=== PATIENT | female | born 1965 | race Caucasian/White ===

== ENCOUNTER 2019-02-20 08:11 | Day surgery (SDC) | payer OTHER ==
[2019-02-20] MEDS ORDERED: Ringers Lactate 1,000 ML IV ONE ×3 (08:17→08:25)
[2019-02-20] MEDS ORDERED: CEFAZOLIN/SWI 1gm 1 GM/10 ML SYR ONE (08:17)
[2019-02-20] MEDS ORDERED: dexAMETHasone 10 MG/ML VIAL ONE (08:19)
[2019-02-20] MEDS ORDERED: LIDOCAINE 1% MPF 5 ML VIAL ONE (08:19)
[2019-02-20] MEDS ORDERED: propofoL 200 MG/20 ML VIAL IV ONE (08:19)
[2019-02-20] MEDS ORDERED: FENTANYL CITR 250 MCG/5 ML ONE (08:19)
[2019-02-20] MEDS ORDERED: NS 0.9% VIAL 10 ML ONE (08:19)
[2019-02-20] MEDS ORDERED: MIDAZOLAM HCL 2 MG/2 ML INJ ONE (08:19)
[2019-02-20] MEDS ORDERED: VECURONIUM 10 MG/VIAL IV ONE (08:20)
[2019-02-20] MEDS ORDERED: ONDANSETRON 4 MG/2 ML VIAL ONE ×2 (08:20→13:40)
[2019-02-20] MEDS ORDERED: Mastisol Adhesive Liq ONE ×2 (08:24→15:07)
[2019-02-20] MEDS ORDERED: BACITRACIN 50000 UNIT VIAL ONE (08:24)
[2019-02-20] MEDS ORDERED: CEFAZOLIN SODIUM 1 GM/VIAL ONE (08:24)
[2019-02-20] MEDS ORDERED: NS 0.9% VIAL 20 ML ONE (08:24)
[2019-02-20] MEDS ORDERED: GENTAMICIN SULF 80 MG/2ML INJ ONE (08:24)
[2019-02-20 08:38] LABS: Absolute Lymphocytes (CBC) 2.5 K/uL (0.7-4.9); Basophils % 0.7 % (0-1.3); Hematocrit 42.8 % (36.0-45.0); Lymphocytes % 35.1 % (15.3-44.8); MPV 7.8 fL (7.6-11.3)
[2019-02-20 08:39] LABS: Urine Appearance CLOUDY; Urine Blood NEGATIVE (NEG); Urine Color DK YELLOW; Urine Glucose NEGATIVE (NEG); Urine Protein NEGATIVE (NEG); Urine Specific Gravity >=1.030 (1.005-1.030); Urine Urobilinogen 0.2 mg/dL (0.2-1.0)
[2019-02-20 08:46] LABS: Urine Bilirubin 1+ (NEG); Urine Microscopic Reflex NO UMIC
[2019-02-20] MEDS ORDERED: SCOPOLAMINE HYDROBROMIDE PATCH TD ONE ×2 (08:50)
[2019-02-20] MEDS ORDERED: EPHEDRINE SULF 50 MG/ML VIAL ONE (10:06)
[2019-02-20] MEDS ORDERED: FENTANYL CITR 100 MCG/2 ML ONE (12:30)
[2019-02-20] MEDS ORDERED: ROCURONIUM 50 MG/5 ML VIAL IV ONE (12:31)
[2019-02-20] MEDS ORDERED: GLYCOPYRROLATE 0.2 MG/ML SYR ONE (13:40)
[2019-02-20] MEDS ORDERED: KETOROLAC 30 MG/ML INJ ONE (13:40)
[2019-02-20] MEDS ORDERED: MEPERIDINE HCL 25 MG/0.5 ML ONE (13:57)
[2019-02-20] MEDS: HYDROMORPHONE HCL 1 MG/ML INJ ONE ×2 (15:37→15:49)
[2019-02-20] MEDS ORDERED: PROMETHAZINE INJ 25 MG/ML AMP ONE (15:39)
[2019-02-20 17:34] VITALS: BP 116/62; TEMP 98.3; O2SAT 100
--- NOTE | 2019-02-21 02:38 | OP ---
Surgeon: Dimas Sin MD Assisted Living Assistant: Dionte. Preoperative Diagnosis: Breast asymmetry, enlargement and descent. Postoperative Diagnosis: Breast asymmetry, enlargement and descent. Procedure Performed: Breast lift with minimal reduction. Anesthesia: General. Procedure In Detail: After satisfactory induction of general anesthesia, the chest was prepped with DuraPrep and dry sterile drapes applied in the usual manner. Both breasts were approached simultaneo usly. Approximately 5 cm template was used to outline both right and left areolas. Then, a transvers e curvilinear incision was made. The intervening skin was de-epithelialized with a dermabrader or Ep iCut. Then, a transverse incision was made with electrocautery. The flap was elevated to 1.6 cm thi ckness, elevated towards the sternum, clavicle, anterior axillary line. This was done in both sides subcutaneously. Then, the inferior incision was made. De-epithelialized tissue was made into cone. This was after the lateral tissue was excised using scalpel and electrocautery. Then the cone was f ormed with 2-0 PDS sutures and then at the base of the cone, straps were elevated at 12 o'clock, 1:30 and 3 o'clock position on the right breast. The straps were woven in and out of the pectoralis carmen r muscle, back to the base of the cone, back to the pectoral muscle, and back to the base of the cone , tied themselves with 2-0 PDS. This was done for the 12 o'clock and 1:30 straps. The 3 o'clock str ap was sewn over the sternum at 3 o'clock position with 2-0 Mersilene. Left side was done in mirror- image manner. Patient was sat up. Asymmetry was noted. Dog ears were marked and the dog ears were resected after placing the patient supine and electrocautery was used for hemostasis. Wounds were ir rigated with antibiotic solution and the 10 AL was brought out the axilla and sewn in place with 2-0 silk, and wounds were closed in layers 3-0 Vicryl subcu, 3-0 PDS running subcuticular tied in the yoel tical meridian of the breast. Left side was done after the right side was done. Patient was sat up. Site for new nipple-areolar complex was marked out. Approximately 5 cm template used to outline th e tissue for excision. It was excised, nipples delivered, sewn with interrupted 4-0 PDS, followed by 4-0 PDS running subcuticular. Dressings consisted of tincture of benzoin, Steri-Strips, 5 x 5's, fl uffs, and Marquis wrap. The patient tolerated the procedure well. The amount removed from the right master ast was 388 g. The amount removed from the left breast was 280 g. LUCIANO/VICENTE Voice ID: [id number] Report ID: [id number]
== END 2019-02-20 18:15 | disposition home or self-care (01) ==
LOC: OR 08:11
PROVIDERS: ATTEND Specialist
PROC: 0H0V0ZZ Alteration of Bilateral Breast, Open Approach (ICD-10-PCS; principal; 2019-02-20 09:00)
DX: N62 Hypertrophy of breast (principal); N64.89 Other specified disorders of breast
CPT/HCPCS: 85025; 36415; 88305; 81003; 19316; J2704; J2550; J1580; J2250; J3010 ×2; J1100; J2175; J1170; J0690 ×2; J7120 ×3; J2405 ×2

== ENCOUNTER 2020-03-19 07:51 | Day surgery (SDC) | payer OTHER ==
[2020-03-19] MEDS ORDERED: ACETAMINOPHEN 325 MG TABLET ONE (08:28)
[2020-03-19] MEDS ORDERED: CEFAZOLIN SODIUM 1 GM/VIAL ONE (08:30)
[2020-03-19] MEDS ORDERED: EPINEPHRINE/PF 1 MG/ML AMP ONE (08:30)
[2020-03-19] MEDS ORDERED: GENTAMICIN SULF 80 MG/2ML INJ ONE (08:30)
[2020-03-19] MEDS ORDERED: BACITRACIN 50000 UNIT VIAL ONE (08:31)
[2020-03-19] MEDS ORDERED: NA CHLORIDE 0.9% 1,000 ML ONE (08:31)
[2020-03-19] MEDS ORDERED: Ringers Lactate 1,000 ML IV ONE ×2 (08:31→08:35)
[2020-03-19] MEDS ORDERED: Mastisol Adhesive Liq ONE (08:31)
[2020-03-19] MEDS ORDERED: NS 0.9% VIAL 0 ML ONE (08:32)
[2020-03-19] MEDS ORDERED: CEFAZOLIN/SWI 1gm 1 GM/10 ML SYR ONE (08:35)
[2020-03-19] MEDS ORDERED: SCOPOLAMINE HYDROBROMIDE PATCH TD ONE ×2 (08:40→08:57)
[2020-03-19] MEDS ORDERED: MIDAZOLAM HCL 2 MG/2 ML INJ ONE (08:41)
[2020-03-19] MEDS ORDERED: dexAMETHasone 10 MG/ML VIAL ONE (08:41)
[2020-03-19] MEDS ORDERED: propofoL 200 MG/20 ML VIAL IV ONE (08:41)
[2020-03-19] MEDS ORDERED: FENTANYL CITR 250 MCG/5 ML ONE (08:42)
[2020-03-19] MEDS ORDERED: LIDOCAINE 2% MPF 5 ML VIAL ONE (08:42)
[2020-03-19] MEDS ORDERED: ONDANSETRON 4 MG/2 ML VIAL ONE ×2 (08:42→11:14)
[2020-03-19] MEDS ORDERED: KETOROLAC 30 MG/ML INJ ONE (08:42)
[2020-03-19] MEDS ORDERED: ROCURONIUM 50 MG/5 ML VIAL IV ONE (08:42)
[2020-03-19] MEDS ORDERED: GLYCOPYRROLATE 0.2 MG/ML SYR ONE (10:39)
[2020-03-19] MEDS ORDERED: NEOSTIGMINE 1 MG/ML -5 ML ONE (11:01)
[2020-03-19] MEDS: HYDROMORPHONE HCL 1 MG/ML INJ ONE ×2 (11:07→11:15)
[2020-03-19] MEDS ORDERED: MEPERIDINE HCL 25 MG/ML SYR ONE (11:15)
[2020-03-19] MEDS ORDERED: CODEINE 30MG/APAP 300MG TAB ONE (11:56)
[2020-03-19 11:59] VITALS: TEMP 97.2; O2SAT 100
[2020-03-19 13:47] VITALS: BP 128/78
--- NOTE | 2020-03-20 12:20 | OP ---
Surgeon: Dimas Sin MD Preoperative Diagnosis: Lipodystrophy of the thighs and lack of upper fullness of the right and left breast and medial fullness of the scar on the left breast. Postoperative Diagnosis: Lipodystrophy of the thighs and lack of upper fullness of the right and left breast and medial fullness of the scar on the left breast. Procedure: Scar revision 1.5 cm, liposuction of the thighs, and fat transfer to the breast. Anesthesia: General. Procedure In Detail: After satisfactory induction of general anesthesia and the patient was prepped from the knees to the neck with DuraPrep [id number] in a frog-leg position. Dry sterile drapes applied in usual manner. A 15 blade was used to make incision over the anteromedial thigh bilaterally. A 2 mm infusion cannula was used and 500 cc was infused in the right thigh and 500 cc _ in the left thigh. fat was harvested with 3 mm cannula. A total of 400 cc removed from right and 400 cc from the left. The wounds were then closed with 4-0 PDS followed by tincture of benzoin, Steri-Strips. The breast was approached first. The fluid was allowed to gravitate in the 60 cc syringes, which was transferred into approximately 10-12 syringes. The incision was made in the left breast medially. At the site of the previous scar, she had the dog ears, which was excised and left open. Incision was made in the right and left breast medial and lateral and in the left breast lateral. A 2.5 mm straight was used and infused the upper poles as well as cone of both breast. Total 250 cc infused in the right and 250 cc in the left. These wounds were closed with 4-0 PDS interrupted. The open wound dog-ear was closed with running 4-0 PDS. Dressed with tinc of benzoin, Steri- Strips, fluffs, Marquis wrap. The patient tolerated the procedure well and returned to Recovery. LUCIANO/VICENTE Voice ID: [id number] Report ID: [id number] WARREN
== END 2020-03-19 13:10 | disposition home or self-care (01) ==
LOC: OR 07:51
PROVIDERS: ATTEND Specialist
PROC: 0H0V07Z Alteration of Bilateral Breast with Autologous Tissue Substitute, Open Approach (ICD-10-PCS; principal; 2020-03-19 10:00)
PROC: 0H0V07Z Alteration of Bilateral Breast with Autologous Tissue Substitute, Open Approach (ICD-10-PCS; 2020-03-19 10:00)
DX: N64.82 Hypoplasia of breast (principal); E88.1 Lipodystrophy, not elsewhere classified
CPT/HCPCS: 15771; 15772 ×9; J2704; J0171; J2250; J3010; J1100; J2175; J1170; J2710; J0690; J7120 ×2; J7030; J2405 ×2; J1580